=== PATIENT | female | born 1995 | race Caucasian/White ===

== ENCOUNTER 2020-02-11 17:44 | Emergency (ER) | payer OTHER ==
[2020-02-11 18:08] VITALS: O2SAT 99
--- NOTE | 2020-02-11 18:29 | ERPHSYRPT ---
- History of Present Illness Time Seen by Provider: 02/11/20 18:14 Source: patient Patient Subjective Stated Complaint: Pt stated that she is 9 weeks and she began bleeding last night every time after she urinates, has pain afterwards as well Triage Nursing Assessment: Pt was brought to the ER by her fiance, reports that this is her 3rd , 1 child was born natural and the other was a c section, pt states that she only has pain after she urinates, states that there is a little bit of blood in the toilet and on the toilet paper, pt rates her pain between a 5-8/10 and it lasts for approx 2 minutes, pain with palpatation to the LLQ, states that she has pain in her lower back, pulses are normal, vitals wnl, Dr. Dowling is her ROTO ROOTER OPERATOR, pt doesn't appear to be in any distress Physician History: 24 years old 3 para 2 at 9 weeks gestation presented in the ER with chief complaint of burning with and after urination since yesterday with some hematuria intermittently. She is also complaining of mild suprapubic dull aching pain. She has called her ROTO ROOTER OPERATOR and is been started on Augmentin but was recommended to have a urinalysis done. Patient denies any vomiting fever or chills. Does not want any pain medication at present. Timing/Duration: yesterday, intermittent, gradual onset Quality: burning Onset Location: suprapubic Pain Radiation: none Severity of Pain-Max: moderate Severity of Pain-Current: mild Prior abdominal problems: none Sexual intercourse history: multiple partners Modifying Factors: Improves With: urinating Associated Symptoms: denies symptoms, dysuria, urinary frequency, No nausea Allergies/Adverse Reactions: No Known Drug Allergies Allergy (Verified 02/11/20 18:08) Home Medications: Vit No.130/Iron/Folic [ Tablet] 1 tab PO DAILY 02/11/20 [ History] Travel Risk - International Travel Have you traveled outside of the country in past 3 weeks: No Have you or anyone close to you been diagnosed with or: No Do your reside in a community with a known COVID-19 case?: Yes If Yes where:: [place] - Coronavirus Screening Has patient experienced Coronavirus symptoms: No - Review of Systems Constitutional: No Symptoms Eyes: No Symptoms Ears, Nose, & Throat: No Symptoms Respiratory: No Symptoms Cardiac: No Symptoms Abdominal/Gastrointestinal: No Symptoms Genitourinary Symptoms: Dysuria Musculoskeletal: No Symptoms Skin: No Symptoms Neurological: No Symptoms Psychological: No Symptoms Endocrine: No Symptoms Hematologic/Lymphatic: No Symptoms - Past Medical History Pertinent Past Medical History: Yes Endocrine Medical History: Hypothyroidism Other Medical History: has HPV - Past Surgical History Past Surgical History: Yes Female Surgical History: Section - Social History Smoking Status: Current every day smoker How long have you smoked: 16 years Exposure to second hand smoke: Yes Drug Use: none Patient Lives Alone: No - Female History Hx Last Menstrual Period: 12/08/2019 Hx Now: Yes Expected Date of Delivery: 09/13/20 - Nursing Vital Signs Nursing Vital Signs: Initial Vital Signs Temperature 97.8 F 02/11/20 17:52 Pulse Rate 89 02/11/20 17:52 Blood Pressure 111/72 02/11/20 17:52 O2 Sat by Pulse Oximetry 99 02/11/20 17:52 Pain Scale Pain Intensity 6 - Physical Exam General Appearance: no apparent distress Eye Exam: eyes nml inspection Ears, Nose, Throat Exam: normal ENT inspection, TMs normal, pharynx normal Neck Exam: normal inspection, non-tender Respiratory Exam: normal breath sounds, lungs clear Cardiovascular Exam: regular rate/rhythm, normal heart sounds Gastrointestinal/Abdomen Exam: soft, normal bowel sounds, tenderness (suprapubic ) Pelvic Exam: not done Back Exam: normal inspection Extremity Exam: normal range of motion Neurologic Exam: alert, oriented x 3, cooperative Skin Exam: normal color SpO2 Interpretation: normal SpO2: 99 O2 Delivery: Room Air Ordered Tests: Active Orders 24 hr Category Date Time Status CULTURE,URINE Stat Lab 02/11/20 18:20 Received UA W/RFX UR CULTURE Stat Lab 02/11/20 18:20 Completed Lab/Rad Data: Laboratory Results 02/11/20 Range/Units 18:20 Urine Color YELLOW (YELLOW) Urine Appearance SLIGHTLY CLOUDY (CLEAR) Urine pH 6.0 (5-6) Ur Specific [place] 1.008 (1.005-1.025) Urine Protein 30 (Negative) Urine Ketones NEGATIVE (NEGATIVE) Urine Blood LARGE (0-5) Finn/ul Urine Nitrite NEGATIVE (NEGATIVE) Urine Bilirubin NEGATIVE (NEGATIVE) Urine Urobilinogen NEGATIVE (0-1) mg/dL Ur Leukocyte Esterase LARGE (NEGATIVE) Urine WBC (Auto) 51-100 (0-5) /HPF Urine RBC (Auto) >101 (0-2) /HPF U Epithel Cells (Auto) RARE (FEW) /HPF Urine Bacteria (Auto) FEW (NEGATIVE) /HPF Urine Culture Reflexed YES (NO) Urine Glucose NEGATIVE (NEGATIVE) mg/dL - Progress Progress: re-examined, unchanged Air Movement: good Progress Note: 02/11/20 18:48 She has acute cystitis with hematuria. She has been prescribed Augmentin which I have recommended to continue. Culture will be obtained. Recommended outpatient follow-up with her ROTO ROOTER OPERATOR. Patient is advised to take Tylenol only as needed for pain. She does not have any right or left lower quadrant tenderness at all on my evaluations. She does have an ultrasound done at [facility] office at [place] which according to patient she has an IUP. I do not think patient needs any further work-up and is stable for discharge with outpatient follow-up. Discussed signs symptoms of worsening needing return to ER which he seems understanding. Counseled pt/family regarding: lab results, diagnosis, need for follow-up - Departure Departure Disposition: Home Clinical Impression: Acute cystitis with hematuria Condition: Stable Critical Care Time: No Referrals: RIGO FLOWER [Primary Care Provider] - Follow Up with PCP/3 days IZZY DOLWING MD [NON-STAFF PHY W/O PRIVILEGES] - (1 to 2 days for reevaluation) Instructions: Urinary Tract Infections in Additional Instructions: Take plenty of fluids. Take Tylenol as needed. Continue with Augmentin antibiotic which you have twice a day for 7 days. Follow-up with your primary care and ROTO ROOTER OPERATOR for reevaluation. Return to ER for worsening of symptoms.
[2020-02-11 18:32] LABS: Appearance SLIGHTLY CLOUDY (CLEAR); Bacteria FEW /HPF (NEGATIVE); Bilirubin NEGATIVE (NEGATIVE); Blood LARGE Ery/ul (0-5); Epithelial Cells RARE /HPF (FEW); Glucose NEGATIVE (NEGATIVE); Ketones NEGATIVE (NEGATIVE); Leukocyte Esterase LARGE (NEGATIVE); Nitrite NEGATIVE (NEGATIVE); Protein,Urine Dip 30 (Negative); Specific Gravity 1.008 (1.005-1.025); Urobilinogen NEGATIVE mg/dL (0-1); WBC 51-100 /HPF (0-5)
[2020-02-11 18:33] LABS: RBC >101 /HPF (0-2)
[2020-02-11 19:04] VITALS: BP 103/72; PULSE 104
== END 2020-02-11 19:04 | disposition home or self-care (01) ==
LOC: ED 17:44
DX: O23.11 Infections of bladder in pregnancy, first trimester (principal); N30.01 Acute cystitis with hematuria; Z3A.09 9 weeks gestation of pregnancy
CPT/HCPCS: 81001; 87077; 87086; 87186; 99283